=== PATIENT | male | born 1970 | race Two or more races ===

== ENCOUNTER 2024-05-25 16:35 | Inpatient (IN) | payer BC ==
[~2024-05-25] VITALS: Ht 180.3 cm; Wt 105.8 kg
[~2024-05-25 16:35] MED LIST: guaiFENesin-DM 100/10mg/5ml SYR PO PRN
--- NOTE | 2024-05-25 17:07 | DVH ---
CHEST RADIOGRAPH Indication: Shortness a breath Technique: Single frontal view of the chest was obtained COMPARISON: None FINDINGS: Lines and Tubes: None Lungs: Right basilar atelectasis. Pleura: Right pleural effusion. No pneumothorax. Cardiomediastinal contours: Unremarkable Bones: Unremarkable IMPRESSION: 1. Right pleural effusion with right basilar atelectasis
--- NOTE | 2024-05-25 17:20 | ED.PDOC ---
SOB-HPI HPI Comments 54 YEAR OLD MALE PRESENTS TO THE ED WITH A CHIEF COMPLAINT OF SHORTNESS OF BREATH ONSET 8 DAYS. PATIENT STATES HE WAS SEEN AT [facility] ON 05/17/24, DIAGNOSED WITH PNEUMONIA, PRESCRIBED ANTIBIOTICS AND WAS DISCHARGED. HE WAS SEEN AT URGENT [facility]ARE 05/19/24, PRESCRIBED ANTIBIOTICS AND STEROIDS. HE STATES HE HAS BEEN TAKING MEDICATION, WITH NO RELIEF OF SYMPTOMS, NOTICED SHORTNESS OF BREATH WORSEN AND RETURNED TO URGENT CARE TODAY. URGENT CARE SENT PATIENT TO ED DUE TO PERSISTENT SYMPTOMS, POSSIBLE ADMISSION. DURING TRIAGE PATIENT'S O2 SAT WAS 95% ON RA. NO OTHER SYMPTOMS OR MODIFYING FACTORS PRESENT AT THIS TIME. Chief Complaint: Shortness of Breath Time Seen by MD: 17:00 Reviewed notes: Medications, Allergies Information Source: Patient Mode of Arrival: Ambulatory Severity: Moderate Timing: Days Duration: Since onset Context: At Rest PE Risk Factors: None History of: Recent Antibiotic Prehospital treatment: Other Modifying Factors: Nothing Radiation: No Radiation Past Medical History PAST MEDICAL HISTORY: Denies Surgical History: Denies all surgeries Family History Family History: Unknown Social History Smoker: Non-Smoker Alcohol: Denies ETOH Use Drugs: Denies Drug Use Lives In: Home Constitutional: denies: chills, diaphoresis, fatigue, fever, malaise, sweats, weakness, others EENTM: denies: blurred vision, double vision, ear bleeding, ear discharge, ear drainage, ear pain, ear ringing, eye pain, eye redness, hearing loss, mouth pain, mouth swelling, nasal discharge, nose bleeding, nose congestion, nose pain, photophobia, tearing, throat pain, throat swelling, voice changes, others Respiratory: reports: shortness of breath; denies: cough, hemoptysis, orthop homa, SOB at rest, SOB with excertion, stridor, wheezing, others Cardiovascular: denies: chest pain, dizzy spells, diaphoresis, Dyspnea on exertion, edema, irregular heart beat, left arm pain, lightheadedness, palpitations, PND, syncope, others Gastrointestinal: denies: abdomen distended, abdominal pain, blood streaked bowels, constipated, diarrhea, dysphagia, difficulty swallowing, hematemesis, melena, nausea, poor appetite, poor fluid intake, rectal bleeding, rectal pain, vomiting, others Genitourinary: denies: burning, dysuria, flank pain, frequency, hematuria, inco ntinence, penile discharge, penile sore, pain, testicle pain, testicle swelling, urgency, others Neurological: denies: dizziness, fainting, headache, left sided numbness, left sided weakness, numbness, paresthesia, pre-existing deficit, right sided numbness, right sided weakness, seizure, speech problems, tingling, tremors, weakness, others Musculoskeletal: denies: back pain, gout, joint pain, joint swelling, muscle pain, muscle stiffness, neck pain, others Integumetry: denies: bruises, change in color, change in hair/nails, dryness, laceration, lesions, lumps, rash, wounds, others Allergic/Immunocompromised: denies: Difficulty Healing, Frequent Infections, Hives, Itching, others Hematologic/Lymphatic: denies: anemia, blood clots, easy bleeding, easy bruising, swollen glands, others Endocrine: denies: excessive hunger, excessive sweating, excessive thirst, excessive urination, flushing, intolerance to cold, intolerance to heat, unexplained weight gain, unexplained weight loss, others Psychiatric: denies: anxiety, bipolar disorder, depression, hopeless, panic disorder, schizophrenia, sleepless, suicidal, others All Other Systems: Reviewed and Negative Physical Exam General Appearance: No Apparent Distress, Normal HEENT: Normal ENT Inspection, Pharynx Normal, TMs Normal Neck: Full Range of Motion, Non-Tender, Normal, Normal Inspection Respiratory: Chest Non-Tender, Lungs Clear, No Accessory Muscle Use, No Respiratory Distress, Normal Breath Sounds Cardiovascular: No Edema, No JVD, No Murmur, No Gallop, Normal Peripheral Pulses, Regular Rate/Rhythm Breast Exam: Deferred Gastrointestinal: No Organomegaly, Non Tender, No Pulsatile Mass, Normal Bowel Sounds, Soft Genitalia: Deferred Pelvic: Deferred Rectal: Deferred Extremities: No calf tenderness, Normal capillary refill, Normal inspection, Normal range of motion, Non-tender, No pedal edema Musculoskeletal : Apperance: Normal Neurologic: Alert, parking manager II-XII nml as Tested, No Motor Deficits, Normal Affect, Normal Mood, No Sensory Deficits Cerebellar Function: Normal Reflexes: Normal Skin: Dry, Normal Color, Warm Lymphatic: No Adenopathy Was a procedure done? Was a procedure done?: No Differential Dx Differential Diagnosis: Bronchitis, Panic Attack, Pneumonia, Pneumothorax, Respiratory Distress X-Ray, Labs, Meds, VS Vital Signs Date Time Temp Pulse Resp B/P (MAP) Pulse Ox O2 Delivery O2 Flow Rate FiO2 05/25/24 16:59 18 95 Room Air* 0 21 05/25/24 16:55 97.8 96 18 118/63 (81) 95 Lab Test 05/25/24 17:04 Range/Units White Blood Count 20.2 H 4.4-10.8 10^3/uL Red Blood Count 4.79 4.5-5.90 10^6/uL Hemoglobin 14.5 13.5-17.5 g/dL Hematocrit 43.4 41.0-53.0 % Mean Corpuscular Volume 90.6 80.0-100.0 fL Mean Corpuscular Hemoglobin 30.2 28.0-32.0 pg Mean Corpuscular Hemoglobin Concent 33.3 32.0-36.0 g/dL Red Cell Distribution Width 14.5 H 11.8-14.3 % Platelet Count 533 H 140-450 10^3/uL Mean Platelet Volume 6.3 L 6.9-10.8 fL Neutrophils (%) (Auto) 37.0-80.0 % Lymphocytes (%) (Auto) 10.0-50.0 % Monocytes (%) (Auto) 0.0-12.0 % Basophils (%) (Auto) 0.0-2.0 % Neutrophils # (Auto) 1.6-8.6 10 ^3/uL Lymphocytes # (Auto) 0.4-5.4 10 ^3/uL Monocytes # (Auto) 0-1.3 10 ^3/uL Differential Total Cells Counted Pending Neutrophils % (Manual) Pending Band Neutrophils % (Manual) Pending Lymphocytes % (Manual) Pending Monocytes % (Manual) Pending Eosinophils % (Manual) Pending Basophils % (Manual) Pending Metamyelocytes % (manual) Pending Myelocytes % (Manual) Pending Promyelocytes % (Manual) Pending Blast Cells % (Manual) Pending Reactive Lymphocytes Pending Platelet Estimate Pending Sodium Level 138 136-145 mmol/L Potassium Level 5.0 3.5-5.1 mmol/L Chloride Level 102 98-107 mmol/L Carbon Dioxide Level 28 20-31 mmol/L Anion Gap 8 5-15 Blood Urea Nitrogen 27 H 9-23 mg/dL Creatinine 1.25 0.700-1.30 mg/dL Glomerular Filtration Rate Calc 68 >90 mL/min BUN/Creatinine Ratio 21.6 H 10.0-20.0 Serum Glucose 100 74-106 mg/dL Calcium Level 8.9 8.7-10.4 mg/dL Total Bilirubin 0.8 0.2-1.0 mg/dL Aspartate Amino Transferase (AST) 21 13-40 U/L Alanine Aminotransferase (ALT) 46 H 7-40 U/L Alkaline Phosphatase 83 46-116 U/L Troponin I High Sensitivity 11 </=54 ng/L Total Protein 6.4 5.7-8.2 g/dL Albumin 3.9 3.2-4.8 g/dL [place] [address] Ph: [phone] DIAGNOSTIC IMAGING Diagnostic Imaging Report : [id number] Signed PATIENT: JORGE ALBERTO LOPEZ ACCT: [id number] UNIT: [id number] : 1970 LOC: ER ROOM / BED: / AGE / SEX: 54 / M ADM STATUS: REG ER SERVICE 48 ORDERING PHYSICIAN: JORI GUAJARDO PROCEDURE(s): CXR1 - CHEST XRAY 1 VIEW REASON: Shortness a breath ORDER NUMBER(s): [id number], ACCESSION NUMBER(s): [id number] CHEST RADIOGRAPH Indication: Shortness a breath Technique: Single frontal view of the chest was obtained COMPARISON: None FINDINGS: Lines and Tubes: None Lungs: Right basilar atelectasis. Pleura: Right pleural effusion. No pneumothorax. Cardiomediastinal contours: Unremarkable Bones: Unremarkable IMPRESSION: 1. Right pleural effusion with right basilar atelectasis ATED BY: MARCUS WALLER MD DICTATED DATE/TIME: 05/25/241704 SIGNED BY: MARCUS WALLER MD SIGNED DATE/TIME: 05/25/241704 CC: X-Ray, Labs, Meds, VS Comment Review of both x-rays does show worsening fluid retention in the right lung. Current x-ray shows pleural effusion Patient will be admitted for pneumonia, failed outpatient treatment Patient will be started on Rocephin and azithromycin in office Patient hemodynamically stable currently Time of 1ST Reevaluation: 17:30 Reevaluation 1ST: Unchanged Patient Education/Counseling: Diagnosis, Treatment, Prognosis Family Education/Counseling: No Family Present Departure 1 Departure Time of Disposition: 18:06 Impression: Primary Impression: Right lower lobe pneumonia Qualified Codes: J18.9 - Pneumonia, unspecified organism Disposition: ADMITTED INPATIENT Condition: Fair Discharged With: Self Critical Care Note Critical Care Time?: No Stability Stability form required: No Heart Score Heart Score: Heart Score Response (Comments) Value History N/A 0 EKG N/A 0 Age N/A 0 Risk Factors N/A 0 Troponin N/A 0 Total 0 I personally scribed for JORI GUAJARDOP ([email or web address]) on 05/25/24 at 17:20. Electronically submitted by Trinity Velez ([email or web address]). I personally scribed for JORI GUAJARDOP ([email or web address]) on 05/25/24 at 17:20. Electronically submitted by Trinity Velez ([email or web address]). JORI GUAJARDO May 25, 2024 17:20
[2024-05-25 17:34] LABS: Hematocrit 43.4 % (41.0-53.0); Hemoglobin 14.5 g/dL (13.5-17.5); Mean Corpuscular Hemoglobin 30.2 pg (28.0-32.0); Mean Corpuscular Hgb Conc. 33.3 g/dL (32.0-36.0); Mean Corpuscular Volume 90.6 fL (80.0-100.0); Platelet Count (auto) 533 10^3/uL (140-450); Red Blood Cells 4.79 10^6/uL (4.5-5.90); Red Cell Distribution Width 14.5 % (11.8-14.3); White Blood Cell 20.2 10^3/uL (4.4-10.8)
[2024-05-25 17:41] LABS: Basophils % (manual) 0 (0.0-2.0); Blast Cells 0; Eosinophils % (manual) 0 (0-7); Metamyelocytes % 0; Myelocytes % 0; Promyelocytes % 0; Reactive Lymphocytes 0
[2024-05-25 17:49] LABS: Albumin 3.9 g/dL (3.2-4.8); Alkaline Phosphatase 83 U/L (46-116); Anion Gap 8 (5-15); Aspartate Aminotransferase 21 U/L (13-40); BUN/Creatinine Ratio 21.6 (10.0-20.0); Calcium 8.9 mg/dL (8.7-10.4); Carbon Dioxide 28 mmol/L (20-31); Chloride 102 mmol/L (98-107); Glucose 100 mg/dL (74-106); Sodium 138 mmol/L (136-145); Total Protein 6.4 g/dL (5.7-8.2)
[2024-05-25 17:50] LABS: Bilirubin, Total 0.8 mg/dL (0.2-1.0)
[2024-05-25 17:53] LABS: Alanine Aminotransferase 46 U/L (7-40); Blood Urea Nitrogen 27 mg/dL (9-23)
[2024-05-25 18:38] LABS: Band Neutrophils % (manual) 3; Lymphocytes % (manual) 16 (10.0-50.0); Monocytes % (manual) 6 (0-12); Platelet Estimate Increased
--- NOTE | 2024-05-25 20:52 | DVH ---
Bilateral Chest Sonogram Clinical history: pleural effusion Technique: Limited sonographic evaluation of the right and left chest was performed. Findings/Impression: There is a small right pleural effusion. No left pleural effusion.
[2024-05-25] MEDS ORDERED: guaiFENesin-DM 100/10mg/5ml SYR PO ONE (21:15)
[2024-05-25] MEDS ORDERED: VANCOMYCIN PER PHARMACY 0 MG IV SCH (21:15)
--- NOTE | 2024-05-25 21:27 | DVHHPRES ---
History of Present Illness Resident Creating Document: VIKASH NIEVES RESIDENT Reason for Visit: pneumonia with right sided pleural effusion History of Present Illness Patient is a 54 year old male with no known past medical history presented to the ED with persistent right sided rib pain and pain on deep inspiration. A week ago he had fever and yellowish sputum. He reported to the urgent care where he was managed for pneumonia with oral antibiotics. Both the fever and cough improved. However, he continues to have right sided rib pain that is worse with deep inspiration and he feels that the pneumonia is not resolved thus prompting this visit. He denies fever, headache, palpitation, dizziness, change in bowel habit, hematochezia,or pedal edema. Chest X-ray showed right pleural effusion with right basilar atelectasis. PMHX: None PSHX: urethra rupture repair SHX: No smoking or drink or illicit drugs. Works as a [employer] at [employer] FMHX: Mother of unknown cause, No DM or HTN Medication: NONE, other than the current antibiotics (doxycycline, azithromycin, and Amoxiclav) and prednisone Past Medical History See HPI Past Surgical History: Other (Urethral rupture) Family History: None Smoke: No Review of Systems Constitutional: Yes: Fever; No: Chills, Sweats, Weakness, Malaise, Other Eyes: No: Pain, Vision change, Conjunctivae inflammation, Eyelid inflammation, Other, Redness ENT: No: Ear pain, Ear discharge, Nose pain, Nose discharge, Nose congestion, Mouth pain, Mouth swelling, Throat pain, Throat swelling, Other Respiratory: Cough, Pleuritic Pain, Sputum; No: Dry, Shortness of breath, SOB with excertion, Wheezing, Hemoptysis, Wheezing, Other Cardiovascular: No: Chest Pain, Palpitations, Orthopnea, Paroxysmal Noc. Dyspnea, Edema, Lt Headedness, Other Gastrointestinal: No: Nausea, Vomiting, Abdominal Pain, Diarrhea, Constipation, Melena, Hematochezia, Other Musculoskeletal: No: other, neck pain, shoulder pain, arm pain, back pain, hand pain, leg pain, foot pain Skin: No: Rash, Lesions, Jaundice, Bruising, Other Neurological: No: Weakness, Numbness, Incoordination, Change in speech, Confusion, Seizures, Other Allergies: Coded Allergies: NO KNOWN ALLERGIES (Unverified , 05/25/24) Exam Vital Signs Vital Signs Date Time Temp Pulse Resp B/P (MAP) Pulse Ox O2 Delivery O2 Flow Rate FiO2 05/25/24 16:59 18 95 Room Air* 0 21 05/25/24 16:55 97.8 96 118/63 (81) General Appearance: Alert, Cooperative, mild distress HEENT: Atraumatic, PERRLA, EOMI Respiratory: Other (decreased air entry right lower lobe) Cardiovascular: Regular rate Abdominal: Normal bowel sounds Extremities: No clubbing, No edema, Normal pulses, No tenderness/swelling Skin: No rashes, No breakdown, No significant lesion Neuro: Normal gait, Normal speech, Strength at 5/5 X4 ext Psych/Mental Status: Mental status NL Labs/Xrays Labs Test 05/25/24 20:45 05/25/24 20:08 05/25/24 17:04 Range/Units Troponin I High Sensitivity 11 </=54 ng/L White Blood Count 20.2 H 4.4-10.8 10^3/uL Red Blood Count 4.79 4.5-5.90 10^6/uL Hemoglobin 14.5 13.5-17.5 g/dL Hematocrit 43.4 41.0-53.0 % Mean Corpuscular Volume 90.6 80.0-100.0 fL Mean Corpuscular Hemoglobin 30.2 28.0-32.0 pg Mean Corpuscular Hemoglobin Concent 33.3 32.0-36.0 g/dL Red Cell Distribution Width 14.5 H 11.8-14.3 % Platelet Count 533 H 140-450 10^3/uL Mean Platelet Volume 6.3 L 6.9-10.8 fL Neutrophils (%) (Auto) 37.0-80.0 % Lymphocytes (%) (Auto) 10.0-50.0 % Monocytes (%) (Auto) 0.0-12.0 % Basophils (%) (Auto) 0.0-2.0 % Neutrophils # (Auto) 1.6-8.6 10 ^3/uL Lymphocytes # (Auto) 0.4-5.4 10 ^3/uL Monocytes # (Auto) 0-1.3 10 ^3/uL Differential Total Cells Counted 100.0 100 Neutrophils % (Manual) 75 37.0-80.0 Band Neutrophils % (Manual) 3 Lymphocytes % (Manual) 16 10.0-50.0 Monocytes % (Manual) 6 0-12 Eosinophils % (Manual) 0 0-7 Basophils % (Manual) 0 0.0-2.0 Metamyelocytes % (manual) 0 Myelocytes % (Manual) 0 Promyelocytes % (Manual) 0 Blast Cells % (Manual) 0 Reactive Lymphocytes 0 Platelet Estimate Increased Sodium Level 138 136-145 mmol/L Potassium Level 5.0 3.5-5.1 mmol/L Chloride Level 102 98-107 mmol/L Carbon Dioxide Level 28 20-31 mmol/L Anion Gap 8 5-15 Blood Urea Nitrogen 27 H 9-23 mg/dL Creatinine 1.25 0.700-1.30 mg/dL Glomerular Filtration Rate Calc 68 >90 mL/min BUN/Creatinine Ratio 21.6 H 10.0-20.0 Serum Glucose 100 74-106 mg/dL Hemoglobin A1c 5.1 <5.7 % A1C Calcium Level 8.9 8.7-10.4 mg/dL Total Bilirubin 0.8 0.2-1.0 mg/dL Aspartate Amino Transferase (AST) 21 13-40 U/L Alanine Aminotransferase (ALT) 46 H 7-40 U/L Alkaline Phosphatase 83 46-116 U/L Total Protein 6.4 5.7-8.2 g/dL Albumin 3.9 3.2-4.8 g/dL Assessment/Plan Assessment/Plan Assessment SIRS Pneumonia with right sided effusion Right sided Atelectasis leukocytosis obesity Plan Admit Cefepime and Vancomycin Ketorolac Sputum culture Normal diet No DVT prophylaxis as patient is moving Goal of care discussed for more than 30 minutes, full code Case and plan discussed with Dr. Jensen Plan discussed with: Patient My Orders Orders - VIKASH NIEVES RESIDENT Procedure Category Date Status Time Chest Ultrasound US 05/25/24 Resulted 20:13 Urinalysis LAB 05/25/24 Logged 20:13 Urine Bacterial KEYANNA 05/25/24 Logged Culture 20:13 Covid19 Antigen Daniela LAB 05/25/24 Logged Mrsa Screen KEYANNA 05/25/24 Logged 20:13 Rapid Influenza A&B LAB 05/25/24 Logged 20:13 Blood Culture KEYANNA 05/25/24 In Process 20:13 Lactic Acid W/ Reflex LAB 05/25/24 In Process Order 20:13 Drug Screen LAB 05/25/24 Logged 20:16 Admit ADMIT 05/25/24 Transmitted 21:06 Condition: Stable ONEYDA 05/25/24 In Process 21:06 Notify Of Changes ONEYDA 05/25/24 In Process From Base 21:06 Cefepime 1 Gm PHA 05/25/24 Transmitted 22:00 Vancomycin Per PHA 05/25/24 Transmitted Pharmacy 21:15 Regular Diet DIET 05/26/24 Transmitted Breakfast Guaifenesin-Dextromet PHA 05/25/24 Transmitted Liquid (Robitussin 21:15 Guaifenesin-Dextromet PHA 05/25/24 Transmitted Liquid (Robitussin 21:15 Ketorolac Injection PHA 05/25/24 Transmitted (Toradol Injection) 21:15 Ketorolac Injection PHA 05/25/24 Transmitted (Toradol Injection) 21:15 Complete Blood Count LAB 05/26/24 Verified 04:00 Basic Metabolic Panel LAB 05/26/24 Verified 04:00 Date of Service: May 25, 2024 Billing Provider: KATIANA JENSEN MD Common Visit Codes: [id number] INP/OBS CARE (HIGH) VIKASH NIEVES RESIDENT May 25, 2024 21:27 KATIANA JENSEN MD May 26, 2024 17:43
[2024-05-25] MEDS: cefTRIAXone 1GM/50ML D5W 50 ML IV ONE (22:30)
[2024-05-25 22:42] LABS: Urine Bacteria None Seen /hpf (None Seen)
[2024-05-25 22:54] LABS: Urine Blood Negative /uL (Negative); Urine Clarity Clear (Clear); Urine Color Yellow (Yellow); Urine Mucus FEW (None Seen); Urine Protein, UAD Negative (Negative); Urine Specific Gravity 1.025 (1.001-1.035); Urine Squamous Epithelial Cell None Seen /hpf (<5); Urine Urobilinogen Normal (Negative); Urine WBC 1 /HPF (0-3); Urine pH 5.5 (5.0-9.0)
[2024-05-25 22:56] VITALS: PULSE 88; RESP 17; O2SAT 97
[2024-05-25] MEDS: AZITHROMYCIN 500MG/ 250ML 250 ML IV ONE (23:09)
[2024-05-25 23:10] LABS: Amphetamine Screen, Urine Neg (NEGATIVE); Barbiturate Scree,Urine Neg (NEGATIVE); Benzodiazephine Screen, Urine Neg (NEGATIVE); Cannabinoid Screen, Urine Neg (NEGATIVE); Cocaine Screen, Urine Neg (NEGATIVE); Opiate Scree,Urine Neg (NEGATIVE); Phencyclidine Screen, Urine Neg (NEGATIVE)
[2024-05-25 23:17] LABS: COVID19 ANTIGEN SOFIA FIA NEGATIVE (NEGATIVE); Rapid Influenza A Negative (Negative); Rapid Influenza B Negative (Negative)
[2024-05-25 23:49] VITALS: BP 118/77; PULSE 84; RESP 18; TEMP 99.7; O2SAT 92
[2024-05-26] VITALS (8 sets, daily range): BP systolic 122–135; BP diastolic 69–83; PULSE 64–79; RESP 17–19; TEMP 97.8–99.4; O2SAT 92–96
[2024-05-26] MEDS: KETOROLAC TROMETH 30 MG/ML 1ML VIAL IV ONE (00:06)
[2024-05-26] MEDS: VANCOMYCIN 1GM/250ML KIT 250 ML IV SCH (00:52)
[2024-05-26] MEDS: CEFEPIME 1GM/ 50ML 50 ML IV SCH ×2 (01:19→08:30)
[2024-05-26] MEDS ORDERED: KETOROLAC TROMETH 30 MG/ML 1ML VIAL IV PRN (04:00)
[2024-05-26] MEDS: KETOROLAC TROMETH 30 MG/ML 1ML VIAL IV PRN (05:25)
[2024-05-26 06:37] LABS: Hematocrit 38.5 % (41.0-53.0); Hemoglobin 13.1 g/dL (13.5-17.5); Mean Corpuscular Hemoglobin 30.6 pg (28.0-32.0); Mean Corpuscular Hgb Conc. 34.1 g/dL (32.0-36.0); Mean Corpuscular Volume 89.7 fL (80.0-100.0); Platelet Count (auto) 399 10^3/uL (140-450); Red Cell Distribution Width 14.5 % (11.8-14.3); White Blood Cell 16.1 10^3/uL (4.4-10.8)
[2024-05-26 06:46] LABS: Chloride 102 mmol/L (98-107); Potassium 3.8 mmol/L (3.5-5.1)
[2024-05-26 06:47] LABS: Anion Gap 5 (5-15); Carbon Dioxide 28 mmol/L (20-31)
[2024-05-26 06:50] LABS: Calcium 8.5 mg/dL (8.7-10.4); Sodium 135 mmol/L (136-145)
[2024-05-26 06:52] LABS: BUN/Creatinine Ratio 19.2 (10.0-20.0); Glucose 99 mg/dL (74-106)
[2024-05-26 06:54] LABS: Blood Urea Nitrogen 25 mg/dL (9-23)
[2024-05-26 07:12] LABS: Basophils % (manual) 0 (0.0-2.0); Blast Cells 0; Metamyelocytes % 0; Promyelocytes % 0; Reactive Lymphocytes 0
[2024-05-26] MEDS ORDERED: CEFEPIME 1GM/ 50ML 50 ML IV SCH (09:00)
--- NOTE | 2024-05-26 09:00 | DVH ---
CT CHEST WITHOUT CONTRAST INDICATION: pneumonia EXAM DATE: 05/26/2024 08:30 AM COMPARISON: US CHEST ULTRASOUND on DOS: 05/25/24 RADIATION DOSE: CTDIvol: 25.19 mGy, DLP: 923.23 mGy*cm PROCEDURE: Helical CT images were obtained of the chest without intravenous contrast. Sagittal and c oronal reconstructions are provided. ADDITIONAL IMAGES / REFORMATS: None All CT scans at this medical facility are performed using dose modulation techniques as appropriate t o a performed exam including the following: Automated exposure control was utilized; adjustment of th e MA and/or KV according to patient size; and use of iterative reconstruction technique. FINDINGS: Bones: Scattered degenerative changes are noted. Visualized Abdomen: Normal. Chest Wall: Normal. Soft tissues: Normal. Mediastinum: Normal. Heart: Coronary artery calcifications are noted. Vessels: Normal. Lymph Nodes: Normal. Pleura: Small right pleural effusion. Airways: Normal. Lung: Right basilar consolidation, could be pneumonia. Other: None IMPRESSION: Right basilar consolidation, could be pneumonia. Small right pleural effusion.
[2024-05-26 11:15] LABS: Band Neutrophils % (manual) 5; Eosinophils % (manual) 1 (0-7); Lymphocytes % (manual) 19 (10.0-50.0); Monocytes % (manual) 5 (0-12); Myelocytes % 3; Platelet Estimate Adequate
--- NOTE | 2024-05-26 11:35 | DVHPNRES ---
Progress Note Date Seen: May 26, 2024 Resident Creating Document: TED HERNANDEZ RESIDENT Has the PT tested + for MRSA If YES, has PT been informed?: No Medical Necessity Reason Pt with a Central, PICC or Fol: No Subjective Review of Systems 54 year old male patient with history of type 1 obesity, urethral rupture status post repair who presented to the emergency department with a chief complaint of right-sided rib pain associated with shortness of breaths, he was previously managed for pneumonia with the oral antibiotics, after he completed the antibiotic prescription he reports some improvement until the day before yesterday with he started on recent increased work of breathing. on admission in the ER he was started on antibiotics such as x-ray showed mild pleural effusion with right basilar atelectasis in the right lower lung. This was also seen in the right lowerung ultrasound, CT chest showed right basilar consolidation that could be related with pneumonia ) patient also has leukocytosis and reactive thrombocytosis, mild fever but no other changes in the vital signs. COVID and influenza test were ordered, they became negative. patient does not meet the criteria for sepsis. He is currently on Cefepime and vancomycin Blood cultures and sputum cultures were ordered, they are still pending. ROS: Constitutional: No: Fever, Chills, Sweats, Weakness, Malaise, Other Eyes: No: Pain, Vision change, Conjunctivae inflammation, Eyelid inflammation, Other, Redness ENT: No: Ear pain, Ear discharge, Nose pain, Nose discharge, Nose congestion, Mouth pain, Mouth swelling, Throat pain, Throat swelling, Other Respiratory: Cough present, Shortness of breath, improving No Wheezing, Hemoptysis, Pleuritic Pain, Sputum, Wheezing, Other Cardiovascular: No: Chest Pain, Palpitations, Orthopnea, Paroxysmal Noc. Dyspnea, Edema, Lt Headedness, Other Gastrointestinal: No: Nausea, Vomiting, Abdominal Pain, Diarrhea, Constipation, Melena, Hematochezia, Other Musculoskeletal: No: other, neck pain, shoulder pain, arm pain, back pain, hand pain, leg pain, foot pain Neurological:; No: Weakness, Numbness, Incoordination, Change in speech, Confusion, Seizures Patient reports: Feels better Changes from previous H/P or p: Changes Objective vital signs Vital Sign Date Time Temp Pulse Resp B/P (MAP) Pulse Ox O2 Delivery O2 Flow Rate FiO2 05/26/24 08:40 98.5 69 17 122/71 (88) 92 98.5 05/25/24 23:25 Room Air* 0 21 Total Intake and Output 05/25/24 05/25/24 05/26/24 15:00 23:00 07:00 Intake Total 50 ml Balance 50 ml medications Current Medications Medications Dose Ordered Sig/Jesus Route Start Time Stop Time Status Last Admin Dose Admin Vancomycin HCl 0 ml @ 0 mls/hr UD IV 05/25/24 21:15 Guaifenesin/ Dextromethorphan 10 ml Q4HP PRN PO 05/25/24 02:00 Cefepime HCl 50 ml @ 12.5 mls/hr Q8H IV 05/26/24 09:00 05/26/24 08:30 12.5 MLS/HR Ketorolac Tromethamine 15 mg Q4HP PRN IV 05/26/24 05:00 05/31/24 04:59 05/26/24 05:25 15 MG Vancomycin HCl 250 ml @ 200 mls/hr Q12H IV 05/26/24 15:00 Examination Examination General Appearance: Alert, Oriented X3, Cooperative, No acute distress Respiratory: Coarse crackles in the left lower lung no wheezing Cardiovascular: Regular rate, Normal S1, Normal S2 Abdominal: Normal bowel sounds Extremities: No cyanosis, No edema, Normal pulses, No tenderness/swelling Skin: No rashes, No breakdown Neuro: Normal gait, Normal speech, Strength at 5/5 X4 ext, Normal tone, Sensation intact, Cranial nerves 3-12 NL, Reflexes 2+ Psych/Mental Status: Mental status NL, Mood NL laboratory and microbiology Laboratory Tests 05/26/24 05:05 Test 05/26/24 05:05 Range/Units Serum Glucose 99 74-106 mg/dL Problem List/Assessment/Plan Problem List/Assessment/Plan Acute respiratory distress due to Gram-positive Gram-negative community-acquired pneumonia complicated with mild right-sided pleural effusion SIRS Right side pleural effussion Right sided Atelectasis CURB 65 Low risk, 0 points -patient admitted to [facility] -currently on room air -continue IV antibiotics -monitor CBC CMP - chest x ray tomorrow -cadena cultures, pending Reactive thrombocytosis -improving -treat underlying condition Transaminitis -as above Hypocalcemia -monitor Type 1 obesity Lifestyle modification counseling, dietary habits counseling Diet: Regular diet DVT prophylaxis: No needed, patient is walking Case discussed with Dr. Chou Goals of care discussed with the patient for 31 minutes Code status: Full code Plan discussed with: Patient TED HERNANDEZ RESIDENT May 26, 2024 11:35
[2024-05-26] MEDS: VANCOMYCIN 1.25GM/250ML 250 ML IV SCH (15:28)
[2024-05-27] VITALS (8 sets, daily range): BP systolic 127–144; BP diastolic 76–87; PULSE 77–82; RESP 16–18; TEMP 98.4–99.6; O2SAT 91–97
[2024-05-27] MEDS ORDERED: VANCOMYCIN 1GM/250ML KIT 0 ML IV ONE (02:26)
[2024-05-27 06:23] LABS: Hematocrit 39.3 % (41.0-53.0); Hemoglobin 13.1 g/dL (13.5-17.5); Mean Corpuscular Hemoglobin 30.2 pg (28.0-32.0); Mean Corpuscular Hgb Conc. 33.3 g/dL (32.0-36.0); Mean Corpuscular Volume 90.6 fL (80.0-100.0); Platelet Count (auto) 383 10^3/uL (140-450); Red Blood Cells 4.34 10^6/uL (4.5-5.90); Red Cell Distribution Width 14.3 % (11.8-14.3); White Blood Cell 14.7 10^3/uL (4.4-10.8)
[2024-05-27 06:30] LABS: Band Neutrophils % (manual) 0; Basophils % (manual) 0 (0.0-2.0); Blast Cells 0; Myelocytes % 0; Promyelocytes % 0; Reactive Lymphocytes 0
[2024-05-27 06:39] LABS: Chloride 103 mmol/L (98-107); Potassium 4.8 mmol/L (3.5-5.1); Sodium 136 mmol/L (136-145)
[2024-05-27 06:40] LABS: Anion Gap 5 (5-15); Carbon Dioxide 28 mmol/L (20-31)
[2024-05-27 06:46] LABS: Calcium 8.5 mg/dL (8.7-10.4); Glucose 107 mg/dL (74-106)
[2024-05-27 06:59] LABS: Eosinophils % (manual) 1 (0-7); Lymphocytes % (manual) 21 (10.0-50.0); Metamyelocytes % 1; Monocytes % (manual) 9 (0-12); Platelet Estimate Adequate
[2024-05-27 07:24] LABS: BUN/Creatinine Ratio 14.2 (10.0-20.0); Blood Urea Nitrogen 15 mg/dL (9-23)
--- NOTE | 2024-05-27 11:22 | DVH ---
EXAM: XY CHEST PORTABLE Indication: pleural effusion Technique: Single frontal view of the chest was obtained Comparison: XY CHEST XRAY 1 VIEW on DOS: 05/25/24 FINDINGS: Lines and Tubes: None Lungs: Trace No focal consolidation. Pulmonary edema. Pleura: Small right pleural effusion. No pneumothorax. Cardiomediastinal contours: Unremarkable Bones: No acute osseous abnormality. IMPRESSION: Trace right pleural effusion and pulmonary edema.
[2024-05-27] MEDS ORDERED: LEVO500T91 PO ×2 (12:55→12:59)
--- NOTE | 2024-05-27 14:10 | DVH ---
EXAM: XY CHEST TWO VIEWS ROUTINE CLINICAL HISTORY: pleural effusion COMPARISON: None TECHNIQUE: Frontal and lateral view of the chest was obtained FINDINGS: Lines and Tubes: None Lungs: Small right pleural effusion. Cardiomediastinal contours: Unremarkable Bones: No acute osseous abnormality. IMPRESSION: Small right pleural effusion of the edema. Pulmonary edema.
--- NOTE | 2024-05-27 17:48 | DVHDSRES ---
Discharge Summary Date of Admission Resident Creating Document: TED HERNANDEZ RESIDENT May 25, 2024 at 21:06 Date of Discharge: May 27, 2024 Admitting Diagnosis Pneumonia with pleural effusion Labs/Diagnostic Data: Laboratory Results Test 05/27/24 14:17 05/27/24 05:32 05/26/24 05:05 05/25/24 22:39 Vancomycin Level Trough 8.9 ug/mL (5-10) White Blood Count 14.7 10^3/uL (4.4-10.8) Red Blood Count 4.34 10^6/uL (4.5-5.90) Hemoglobin 13.1 g/dL (13.5-17.5) Hematocrit 39.3 % (41.0-53.0) Mean Corpuscular Volume 90.6 fL (80.0-100.0) Mean Corpuscular Hemoglobin 30.2 pg (28.0-32.0) Mean Corpuscular Hemoglobin Concent 33.3 g/dL (32.0-36.0) Red Cell Distribution Width 14.3 % (11.8-14.3) Platelet Count 383 10^3/uL (140-450) Mean Platelet Volume 6.6 fL (6.9-10.8) Neutrophils (%) (Auto) % (37.0-80.0) Lymphocytes (%) (Auto) % (10.0-50.0) Monocytes (%) (Auto) % (0.0-12.0) Basophils (%) (Auto) % (0.0-2.0) Neutrophils # (Auto) 10 ^3/uL (1.6-8.6) Lymphocytes # (Auto) 10 ^3/uL (0.4-5.4) Monocytes # (Auto) 10 ^3/uL (0-1.3) Differential Total Cells Counted 100.0 (100) Neutrophils % (Manual) 68 (37.0-80.0) Band Neutrophils % (Manual) 0 Lymphocytes % (Manual) 21 (10.0-50.0) Monocytes % (Manual) 9 (0-12) Eosinophils % (Manual) 1 (0-7) Basophils % (Manual) 0 (0.0-2.0) Metamyelocytes % (manual) 1 Myelocytes % (Manual) 0 Promyelocytes % (Manual) 0 Blast Cells % (Manual) 0 Reactive Lymphocytes 0 Platelet Estimate Adequate Sodium Level 136 mmol/L (136-145) Potassium Level 4.8 mmol/L (3.5-5.1) Chloride Level 103 mmol/L (98-107) Carbon Dioxide Level 28 mmol/L (20-31) Anion Gap 5 (5-15) Blood Urea Nitrogen 15 mg/dL (9-23) Creatinine 1.06 mg/dL (0.700-1.30) Glomerular Filtration Rate Calc 83 mL/min (>90) BUN/Creatinine Ratio 14.2 (10.0-20.0) Serum Glucose 107 mg/dL (74-106) Calcium Level 8.5 mg/dL (8.7-10.4) Thyroid Stimulating Hormone (TSH) 2.56 uIU/mL (0.55-4.78) Urine Color Yellow (Yellow) Urine Clarity Clear (Clear) Urine pH 5.5 (5.0-9.0) Urine Specific [place] 1.025 (1.001-1.035) Urine Protein Negative (Negative) Urine Ketones Trace (Negative) Urine Blood Negative /uL (Negative) Urine Nitrite Negative (Negative) Urine Bilirubin Negative (Negative) Urine Urobilinogen Normal mg/dL (Negative) Urine Leukocyte Esterase Negative /uL (Negative) Urine RBC 4 /hpf (0 - 3) Urine Microscopic WBC 1 /HPF (0-3) Urine Squamous Epithelial Cells None seen /hpf (<5) Urine Bacteria None seen /hpf (None Seen) Urine Mucus Few (None Seen) Urine Glucose Normal mg/dL (Normal) Urine Opiates Screen Neg (NEGATIVE) Urine Fentanyl Screen Neg (NEGATIVE) Urine Barbiturates Screen Neg (NEGATIVE) Urine Phencyclidine Screen Neg (NEGATIVE) Urine Amphetamines Screen Neg (NEGATIVE) Urine Benzodiazepines Screen Neg (NEGATIVE) Urine Cocaine Screen Neg (NEGATIVE) Urine Cannabinoids Screen Neg (NEGATIVE) Test 05/25/24 22:35 05/25/24 20:45 05/25/24 20:08 05/25/24 17:04 Influenza Type A Antigen Negative (Negative) Influenza Type B Antigen Negative (Negative) SARS-CoV-2 Antigen (Rapid) Negative (NEGATIVE) Lactic Acid Level 1.0 mmol/L (0.4-2.0) Troponin I High Sensitivity 11 ng/L (</=54) Hemoglobin A1c 5.1 % A1C (<5.7) Total Bilirubin 0.8 mg/dL (0.2-1.0) Aspartate Amino Transferase (AST) 21 U/L (13-40) Alanine Aminotransferase (ALT) 46 U/L (7-40) Alkaline Phosphatase 83 U/L (46-116) Total Protein 6.4 g/dL (5.7-8.2) Albumin 3.9 g/dL (3.2-4.8) Other Laboratory Tests 05/27/24 05:32 Brief Hx & Hospital Course: HPI 54 year old male patient with history of type 1 obesity, urethral rupture status post repair who presented to the emergency department with a chief complaint of right-sided rib pain associated with shortness of breaths, he was previously managed for pneumonia with the oral antibiotics, after he completed the antibiotic prescription he reports some improvement until the day before yesterday with he started on recent increased work of breathing. Hospital course: On admission in the ER he was started on antibiotics such as x-ray showed mild pleural effusion with right basilar atelectasis in the right lower lung. This was also seen in the right lowerung ultrasound, CT chest showed right basilar consolidation that could be related with pneumonia ) patient also has leukocytosis and reactive thrombocytosis, mild fever but no other changes in the vital signs. COVID and influenza test were ordered, they became negative. Patient was continue on IV antibiotics, chest x-ray showed satisfactory progression as well as signs and symptoms. Patient was able to walk, he was able to eat without any issue for which she was discharged with the recommendations to continue antibiotics orally and visit his primary care doctor within 1-2 weeks and the discharge clinic within 1 week. Disposition: Discharged to home Case discussed with Dr. Chou Goals of care discussed with the patient for 31 minutes Code status full code Operations or Procedures [address] [address] Ph: [phone] DIAGNOSTIC IMAGING Diagnostic Imaging Report : [id number] Signed PATIENT: JORGE ALBERTO LOPEZ ACCT: [id number] UNIT: [id number] : 1970 LOC: [facility] ROOM / BED: 0285 / B AGE / SEX: 54 / M ADM STATUS: ADM IN SERVICE 1253 ORDERING PHYSICIAN: TED HERNANDEZ RESIDENT PROCEDURE(s): CXR2 - CHEST TWO VIEWS ROUTINE REASON: pleural effusion ORDER NUMBER(s): [id number], ACCESSION NUMBER(s): [id number] EXAM: XY CHEST TWO VIEWS ROUTINE CLINICAL HISTORY: pleural effusion COMPARISON: None TECHNIQUE: Frontal and lateral view of the chest was obtained FINDINGS: Lines and Tubes: None Lungs: Small right pleural effusion. Cardiomediastinal contours: Unremarkable Bones: No acute osseous abnormality. IMPRESSION: Small right pleural effusion of the edema. Pulmonary edema. ATED BY: RADHA LE MD DICTATED DATE/TIME: 05/27/241406 SIGNED BY: RADHA LE MD SIGNED DATE/TIME: 05/27/241406 CC: [place] [address] Ph: [phone] DIAGNOSTIC IMAGING Diagnostic Imaging Report : [id number] Signed PATIENT: JORGE ALBERTO LOPEZ ACCT: [id number] UNIT: [id number] : 1970 LOC: [facility] ROOM / BED: [address] [place] [address] AGE / SEX: 54 / M ADM STATUS: ADM IN SERVICE 040 ORDERING PHYSICIAN: TED HERNANDEZ RESIDENT PROCEDURE(s): CXRP - CHEST PORTABLE REASON: pleural effusion ORDER NUMBER(s): [id number], ACCESSION NUMBER(s): [id number] EXAM: XY CHEST PORTABLE Indication: pleural effusion Technique: Single frontal view of the chest was obtained Comparison: XY CHEST XRAY 1 VIEW on DOS: 05/25/24 FINDINGS: Lines and Tubes: None Lungs: Trace No focal consolidation. Pulmonary edema. Pleura: Small right pleural effusion. No pneumothorax. Cardiomediastinal contours: Unremarkable Bones: No acute osseous abnormality. IMPRESSION: Trace right pleural effusion and pulmonary edema. ATED BY: RADHA LE MD DICTATED DATE/TIME: 05/27/24 111 SIGNED BY: RADHA LE MD SIGNED DATE/TIME: 05/27/24 111 CC: [place] [address] Ph: [phone] DIAGNOSTIC IMAGING Diagnostic Imaging Report : [id number] Signed PATIENT: JORGE ALBERTO LOPEZ ACCT: [id number] UNIT: [id number] : 1970 LOC: OVERFLOW ROOM / BED: 1022-ER / A AGE / SEX: 54 / M ADM STATUS: ADM IN SERVICE 2 ORDERING PHYSICIAN: VIKASH NIEVES PROCEDURE(s): CX2CT - CHEST WITHOUT CONTRAST REASON: pneumonia ORDER NUMBER(s): [id number], ACCESSION NUMBER(s): [id number] CT CHEST WITHOUT CONTRAST INDICATION: pneumonia EXAM DATE: 05/26/2024 08:30 AM COMPARISON: US CHEST ULTRASOUND on DOS: 05/25/24 RADIATION DOSE: CTDIvol: 25.19 mGy, DLP: 923.23 mGy*cm PROCEDURE: Helical CT images were obtained of the chest without intravenous contrast. Sagittal and coronal reconstructions are provided. ADDITIONAL IMAGES / REFORMATS: None All CT scans at this medical facility are performed using dose modulation techniques as appropriate to a performed exam including the following: Automated exposure control was utilized; adjustment of the MA and/or KV according to patient size; and use of iterative reconstruction technique. FINDINGS: Bones: Scattered degenerative changes are noted. Visualized Abdomen: Normal. Chest Wall: Normal. Soft tissues: Normal. Mediastinum: Normal. Heart: Coronary artery calcifications are noted. Vessels: Normal. Lymph Nodes: Normal. Pleura: Small right pleural effusion. Airways: Normal. Lung: Right basilar consolidation, could be pneumonia. Other: None IMPRESSION: Right basilar consolidation, could be pneumonia. Small right pleural effusion. ATED BY: JEFFREY BARDALES MD DICTATED DATE/TIME: 05/26/24857 SIGNED BY: JEFFREY BARDALES MD SIGNED DATE/TIME: 05/26/24857 CC: [place] [address] Ph: [phone] DIAGNOSTIC IMAGING Diagnostic Imaging Report : [id number] Signed PATIENT: JORGE ALBERTO LOPEZ ACCT: [id number] UNIT: [id number] : 1970 LOC: ER ROOM / BED: / AGE / SEX: 54 / M ADM STATUS: REG ER SERVICE 12 ORDERING PHYSICIAN: VIKASH NIEVES PROCEDURE(s): CHSTU - CHEST ULTRASOUND REASON: pleural effusion ORDER NUMBER(s): [id number], ACCESSION NUMBER(s): [id number] Bilateral Chest Sonogram Clinical history: pleural effusion Technique: Limited sonographic evaluation of the right and left chest was performed. Findings/Impression: There is a small right pleural effusion. No left pleural effusion. ATED BY: RUY GONZALEZ MD DICTATED DATE/TIME: 05/25/242046 SIGNED BY: RUY GONZALEZ MD SIGNED DATE/TIME: 05/25/242046 CC: [place] [address] Ph: [phone] DIAGNOSTIC IMAGING Diagnostic Imaging Report : [id number] Signed PATIENT: JORGE ALBERTO LOPEZ ACCT: [id number] UNIT: [id number] : 1970 LOC: ER ROOM / BED: / AGE / SEX: 54 / M ADM STATUS: REG ER SERVICE 48 ORDERING PHYSICIAN: JORI GUAJARDO PROCEDURE(s): CXR1 - CHEST XRAY 1 VIEW REASON: Shortness a breath ORDER NUMBER(s): [id number], ACCESSION NUMBER(s): [id number] CHEST RADIOGRAPH Indication: Shortness a breath Technique: Single frontal view of the chest was obtained COMPARISON: None FINDINGS: Lines and Tubes: None Lungs: Right basilar atelectasis. Pleura: Right pleural effusion. No pneumothorax. Cardiomediastinal contours: Unremarkable Bones: Unremarkable IMPRESSION: 1. Right pleural effusion with right basilar atelectasis ATED BY: MARCUS WALLER MD DICTATED DATE/TIME: 05/25/241704 SIGNED BY: MARCUS WALLER MD SIGNED DATE/TIME: 05/25/241704 CC: Condition at Discharge: Critical Final Diagnosis/Problems List Acute respiratory distress due to Gram-positive Gram-negative community-acquired pneumonia complicated with mild right-sided pleural effusion SIRS Right side pleural effussion Right sided Atelectasis Reactive thrombocytosis Transaminitis Hypocalcemia Type 1 obesity Discharge Disposition: Home SNF Discharge Will this Physician continue t: No Discharge Instruct/Medications Diet: Regular Activity: No Restrictions, As Tolerated Follow Up/Referral: follow up with pcp within 1 to 2 weeks [facility] clinic in one week Medications: script to pharmacy Discharge Statement: "Patient was advised to return to the ER or call 911 if any headaches, dizziness, shortness of breath, chest pain, abdominal pain, bleeding, fevers, or worsening of medical condition. Patient was counseled about treatment plan, medications, possible side effects, patientverbalized understanding. All questions were answered to the best of my ability. This discharge took greater then 30 minutes in planning, reviewing documentation, counseling the patient, and discussing with other team members." ASSESSMENT ASSESSMENT Assessment RIGHT SIDE PLEURAL EFFUSION TED HERNANDEZ RESIDENT May 27, 2024 17:48
== END 2024-05-27 16:55 | disposition home or self-care (01) | DRG 178 ==
LOC: ER 16:41 → OVERFLOW 21:06 → WEST WING 05-26 18:42
PROVIDERS: ADMIT Student in an Organized Health Care Education/Training Program; ATTEND Student in an Organized Health Care Education/Training Program
DX: J15.69 Pneumonia due to other Gram-negative bacteria (principal); J90 Pleural effusion, not elsewhere classified; R65.10 Systemic inflammatory response syndrome (SIRS) of non-infectious origin without acute organ dysfunction; J15.9 Unspecified bacterial pneumonia; E83.51 Hypocalcemia; E66.811 Obesity, class 1; D75.838 Other thrombocytosis; R74.01 Elevation of levels of liver transaminase levels; Z68.32 Body mass index [BMI] 32.0-32.9, adult; Z79.899 Other long term (current) drug therapy
CPT/HCPCS: 36415; 71045; 71046; 71250; 76604; 80048; 80053; 80202; 80307; 81001; 83036; 83605; 84443; 84484; 85007; 85027; 87040; 87070; 87081; 87086; 87205; 87426; 87804; G0378; J1885